=== PATIENT | female | born 1945 | race Caucasian/White ===

== ENCOUNTER → 2017-06-24 | Outpatient (CLI) | payer MEDICARE ==
--- NOTE | 2017-06-24 12:46 | RAD ---
Bilateral lower extremity venous duplex study 06/24/2017 Clinical history: Leg swelling. Varicose veins. Technique: Using a combination of real time ultrasound imaging and color-flow and pulse Doppler imaging techniques along with graded compression and augmentation, duplex evaluation of the deep venous system of the both lower extremities was performed. Multiple images were obtained. Findings: There is no sonographic evidence of deep venous thrombosis involving the visualized deep venous structures of either lower extremity. No superficial thrombophlebitis is seen. There is evidence of venous reflux involving the left common femoral and left greater saphenous vein. Impression: 1. There is no sonographic evidence of deep venous thrombosis involving either lower extremity. 2. Reflux is seen involving the left greater saphenous vein.
--- NOTE | 2017-06-24 15:07 | RAD ---
Bilateral lower extremity arterial duplex study 06/24/2017 Clinical history: Claudication. Technique: Using a combination of real-time ultrasound imaging and color-flow and pulse doppler imaging techniques, duplex evaluation of the major arterial structures of both lower extremities was performed. Multiple images were obtained. Findings: Minimal to mild atheromatous/atherosclerotic plaque formation is seen involving the major arterial structures of both lower extremities. Biphasic/triphasic arterial waveforms are seen throughout. The peak systolic velocities taper normally. No hemodynamically significant stenosis is seen. No arterial flow is seen within the left peroneal artery. This may be occluded. Impression: Minimal to mild atheromatous/atherosclerotic plaque formation is seen involving the major arterial structures of both lower extremities. No definite arterial flow is seen within the left peroneal artery. It may be occluded. No area of stenosis is seen.
== END | disposition home or self-care (01) ==
LOC: US 09:17
PROVIDERS: ATTEND Family Medicine
DX: I70.203 Unspecified atherosclerosis of native arteries of extremities, bilateral legs (principal); I83.93 Asymptomatic varicose veins of bilateral lower extremities; R16.0 Hepatomegaly, not elsewhere classified; Z90.49 Acquired absence of other specified parts of digestive tract
CPT/HCPCS: 93925; 93970

== ENCOUNTER → 2017-08-12 | Outpatient (CLI) | payer MEDICARE ==
--- NOTE | 2017-08-12 11:04 | RAD ---
Indication: Right upper quadrant pain. Cirrhosis. Technique: Ultrasound of the abdomen was performed. No comparison is available. Findings: Visualized pancreas is unremarkable, pancreatic duct within normal limits. Aorta is normal caliber. IVC is patent. Liver is without discrete lesion. It is normal in echogenicity. The biliary system is dilated with the common bile duct 17 mm in diameter. There is a potential stone or polyp within the common bile duct. Gallbladder is absent. Kidneys are without hydronephrosis or mass. Spleen is not enlarged. Impression: 1. Dilated biliary system with common bile duct 17 mm in diameter. Potential small stone or stricture.
== END | disposition home or self-care (01) ==
LOC: US 07:40
PROVIDERS: ATTEND Family Medicine
DX: K74.3 Primary biliary cirrhosis (principal); R74.8 Abnormal levels of other serum enzymes; R10.13 Epigastric pain; Z90.49 Acquired absence of other specified parts of digestive tract
CPT/HCPCS: 76700

== ENCOUNTER → 2017-10-15 | Outpatient (CLI) | payer MEDICARE ==
--- NOTE | 2017-10-15 15:57 | RAD ---
DATE: 10/15/2017 EXAM: MAMMO ANA SCREENING BILATERAL Bilateral digital screening mammography to include digital breast tomosynthesis (3D mammography) HISTORY: Screening study COMPARISON: 10/11/2016 This study was interpreted with the benefit of Computerized Aided Detection (CAD). The breast parenchyma shows scattered fibroglandular densities. Breast parenchyma level B. FINDINGS: Digital MLO and CC mammograms of both breasts were obtained. Additionally digital breast tomosynthesis (3D mammography) images of both breasts in the MLO and CC projections were performed. Comparison study is dated 10/11/2016. The breast parenchyma is composed of scattered fibroglandular densities which can obscure a lesion on mammography (breast density code B). No spiculated mass is seen. No malignant appearing calcification or area of architectural distortion is noted. Digital breast tomosynthesis images demonstrate no spiculated mass or malignant appearing calcification. Since the previous examination there has been no significant interval change. IMPRESSION: BI-RADS category 1, negative. There is no mammographic evidence of malignancy. Routine yearly screening mammography is recommended for follow-up. BI-RADS CATEGORY: 1 NEGATIVE RECOMMENDED FOLLOW-UP: 12M 12 MONTH FOLLOW-UP PQRS compliance statement: Patient information was entered into a reminder system with a target due date 10/15/2018 for the next mammogram. Mammography is a sensitive method for finding small breast cancers, but it does not detect them all and is not a substitute for careful clinical examination. A negative mammogram does not negate a clinically suspicious finding and should not result in delay in biopsying a clinically suspicious abnormality. "Our facility is accredited by the [employer] Mammography [employer]."
== END | disposition home or self-care (01) ==
LOC: MAMMO 12:55
PROVIDERS: ATTEND Family Medicine
DX: Z12.31 Encounter for screening mammogram for malignant neoplasm of breast (principal)
CPT/HCPCS: 77063; G0202; 77067

== ENCOUNTER → 2018-10-16 | Outpatient (CLI) | payer MEDICARE ==
--- NOTE | 2018-10-19 08:41 | RAD ---
DATE: 10/16/2018 12:30 PM EXAM: MAMMO ANA SCREENING BILATERAL HISTORY: routine screening evaluation. COMPARISON: Prior mammographic imaging dating back to 08/01/2009 Bilateral CC and MLO views of the breasts were performed. Bilateral breast tomosynthesis was performed in CC and MLO projections. This study was interpreted with the benefit of Computerized Aided Detection (CAD ). Breast Density: The breast parenchyma is primarily fatty replaced. Breast parenchyma level density A. FINDINGS: Benign calcifications are present. No suspicious masses, microcalcifications or architectural distortion is present to suggest malignancy in either breast. The visualized axillae are unremarkable. IMPRESSION: No mammographic evidence of malignancy. BI-RADS CATEGORY: 2 BENIGN FINDING(S) RECOMMENDED FOLLOW-UP: 12M 12 MONTH FOLLOW-UP Annual screening mammography is recommended, unless clinically indicated sooner based on symptoms or change in physical exam. PQRS compliance statement: Patient information was entered into a reminder system with a target due date 10/16/2019 for the next mammogram. Mammography is a sensitive method for finding small breast cancers, but it does not detect them all and is not a substitute for careful clinical examination. A negative mammogram does not negate a clinically suspicious finding and should not result in delay in biopsying a clinically suspicious abnormality. "Our facility is accredited by the [employer] Mammography [employer]." LIZZIED
== END | disposition home or self-care (01) ==
LOC: MAMMO 10:19
PROVIDERS: ATTEND Family Medicine
DX: Z12.31 Encounter for screening mammogram for malignant neoplasm of breast (principal)
CPT/HCPCS: 77063; 77067

== ENCOUNTER → 2019-06-03 | Outpatient (CLI) | payer MEDICARE ==
--- NOTE | 2019-06-03 17:03 | CARD ---
MR#: [id number] Date of Study: 06/03/2019 Ordering Physician: CABRERA WALSH, Referring Physician: CABRERA WALSH, Tech: Marbella German APPROVED REPORT EXAM: Two-dimensional and M-mode echocardiogram with Doppler and color Doppler. Other Information Quality : Fair INDICATION Dyspnea 2D DIMENSIONS Left Atrium(2D)3.6 (1.6-4.0cm)IVSd1.2 (0.7-1.1cm) Aortic Root(2D)2.9 (2.0-3.7cm)LVDd4.1 (3.9-5.9cm) LVOT Diameter2.1 (1.8-2.4cm)PWd1.1 (0.7-1.1cm) LVDs2.9 (2.5-4.0cm)FS (%) 27.7 % SV39.4 mlLVEF(%)54.2 (>50%) Aortic Valve AoV Peak Pelon.180.6cm/sAoV VTI36.5cm AO Peak GR.13.1mmHgLVOT Peak Pelon.105.5cm/s LVOT VTI 25.15cmAO Mean GR.7mmHg DARRYL (VMAX)2.11do8COF (VTI)2.42cm2 Mitral Valve MV E Hhqicgca09.0cm/sMV DECEL AUCU671xs MV A Dghpeodo570.0cm/sE/A Ratio0.9 Pulmonary Valve PV Peak Jnhbleye85.2cm/sPV Peak Grad.4mmHg Tricuspid Valve TR P. Xudpaqlg876og/sRAP IVHYYDZP8bsFu TR Peak Gr.21biJjERJW29bzWb Pulmonary Vein S1 Hbwmwgqi90.5cm/sD2 Cktugdof03.8cm/s LEFT VENTRICLE The left ventricle is normal size. There is mild concentric left ventricular hypertrophy. The left ve ntricular systolic function is normal. The Ejection Fraction is 55%. There is normal LV segmental wal l motion. Transmitral Doppler flow pattern is Grade I-abnormal relaxation pattern. RIGHT VENTRICLE The right ventricle is normal size. There is normal right ventricular wall thickness. The right ventr icular systolic function is normal. ATRIA The left atrium size is normal. The right atrium size is normal. The interatrial septum is intact wit h no evidence for an atrial septal defect or patent foramen ovale as noted on 2-D or Doppler imaging. AORTIC VALVE The aortic valve is not well visualized. Doppler and Color Flow revealed no significant aortic regurg itation. There is no significant aortic valvular stenosis. MITRAL VALVE The mitral valve is normal in structure and function. There is no evidence of mitral valve prolapse. There is no mitral valve stenosis. Doppler and Color Flow revealed no mitral valve regurgitation note d. TRICUSPID VALVE The tricuspid valve is not well visualized. Doppler and Color Flow revealed trace tricuspid valve reg urgitation noted with an estimated PAP of 23 mmHg. There is no tricuspid valve stenosis. PULMONIC VALVE The pulmonic valve is not well visualized. Doppler and Color Flow revealed no pulmonic valvular regur gitation. GREAT VESSELS The aortic root is normal in size. The IVC is normal in size and collapses >50% with inspiration. PERICARDIAL EFFUSION There is no evidence of significant pericardial effusion. Critical Notification Critical Value: No <Conclusion> The left ventricular systolic function is normal. The Ejection Fraction is 55%. There is normal LV segmental wall motion. Transmitral Doppler flow pattern is Grade I-abnormal relaxation pattern. Trace tricuspid valve regurgitation noted with an estimated PAP of 23 mmHg. There is no evidence of significant pericardial effusion. Signed by : Cabrera Walsh, Electronically Approved : 06/03/2019 17:03:01
--- NOTE | 2019-06-03 17:29 | RAD ---
MR#: [id number] Date of Study: 06/03/2019 Ordering Physician: CABRERA VENEGAS, Referring Physician: CABRERA VENEGAS, Tech: Sisi Coburn RDMS, RVT, RTR APPROVED REPORT Patient Location : OUT-PATIENT Indications Grayscale images of the bilateral saphenofemoral junctions do not reveal any obvious evidence of thro mbus. The right great saphenous vein has a maximum diameter of approximately 6.6 mm with a reflux time of a pproximately 3 seconds. The left greater saphenous vein has a maximum diameter of 5.9 mm with a maximum reflux time of approx imately 4.5 seconds. The bilateral lesser saphenous veins do not show any evidence of reflux. Critical Notification Critical Value: No <Conclusion> 1. Positive for reflux in the bilateral greater saphenous veins. Signed by : Conrado Eid, Electronically Approved : 06/03/2019 17:28:52
== END | disposition home or self-care (01) ==
LOC: US 12:32
PROVIDERS: ATTEND Internal Medicine Cardiovascular Disease
DX: I87.2 Venous insufficiency (chronic) (peripheral) (principal); I51.7 Cardiomegaly
CPT/HCPCS: 93306; 93970

== ENCOUNTER → 2019-07-28 | Outpatient (CLI) | payer MEDICARE ==
--- NOTE | 2019-07-28 17:35 | RAD ---
MR#: [id number] Date of Study: 07/28/2019 Ordering Physician: CABRERA VENEGAS, Referring Physician: CABRERA VENEGAS, Tech: Marbella Fernandez, PATTY, RVT, RTR APPROVED REPORT Bilateral Lower Extremity Venous Study for DVT Patient Location: OUT-PATIENT Indications Post Op Bilateral GSV Vena Seal ablation. Check for DVT Risk Factors Grayscale images the bilateral saphenofemoral junctions are grossly unremarkable. The bilateral great er saphenous veins are occluded consistent with recent history of ablation. No DVTs noted. Spectral w aveforms and color Doppler are within normal limits and the deep venous system. Critical Notification Critical Value: No <Conclusion> 1. Negative for DVT. Signed by : Conrado Eid, Electronically Approved : 07/28/2019 17:35:11
== END | disposition home or self-care (01) ==
LOC: US 11:07
PROVIDERS: ATTEND Internal Medicine Cardiovascular Disease
DX: I82.813 Embolism and thrombosis of superficial veins of lower extremities, bilateral (principal); I87.2 Venous insufficiency (chronic) (peripheral)
CPT/HCPCS: 93970

== ENCOUNTER → 2020-03-31 | Outpatient (CLI) | payer MEDICARE ==
--- NOTE | 2020-03-31 12:35 | RAD ---
MR#: [id number] Date of Study: 03/31/2020 Ordering Physician: CABRERA VENEGAS, Referring Physician: CABRERA VENEGAS, Tech: Veronica Morse RVT,PATTY APPROVED REPORT Right Lower Extremity Venous Study for DVT Patient Location: OUT-PATIENT Indications Lower Extremity Edema: On the right the grayscale images of the common femoral, superficial femoral and popliteal veins do n ot demonstrate any evidence of thrombus and these veins appear to be compressible. The below-knee vei ns were not well visualized but grossly appear to be compressible. Spectral imaging and color Doppler do not reveal any evidence of obstruction to flow with normal respirophasic variation above the knee . Below the knee there is spontaneous flow noted. Medications Aspirin Vein Imaging (Right) CFV (R): Compressible SFJ (R): Compressible FEM (R): Compressible POP (R): Compressible DFV (R): Compressible PTV (R): Compressible GSV (R): Compressible Peroneals (R): Compressible Critical Notification Critical Value: No <Conclusion> Negative for DVT in the RLE s/p venaseal ablation therapy of the GSV Signed by : Conrado Eid, Electronically Approved : 03/31/2020 12:34:54
== END | disposition home or self-care (01) ==
LOC: US 09:18
PROVIDERS: ATTEND Internal Medicine Cardiovascular Disease
DX: I87.2 Venous insufficiency (chronic) (peripheral) (principal)
CPT/HCPCS: 93971

== ENCOUNTER → 2020-04-19 | Outpatient (CLI) | payer MEDICARE ==
--- NOTE | 2020-04-19 12:08 | RAD ---
DATE: 04/19/2020 9:20 AM EXAM: MAMMO ANA SCREENING BILATERAL HISTORY: Screening COMPARISON: 10/16/2018 Bilateral CC and MLO views of the breasts were performed. Bilateral breast tomosynthesis was performed in CC and MLO projections. This study was interpreted with the benefit of Computerized Aided Detection (CAD). FINDINGS: Breast Density: FATTY The Breast Parenchyma is primarily fatty replaced. Breast parenchyma level density A. No suspicious masses, microcalcifications or architectural distortion is present to suggest malignancy in either breast. The visualized axillae are unremarkable. IMPRESSION: No mammographic evidence of malignancy. BI-RADS CATEGORY: 1 NEGATIVE RECOMMENDED FOLLOW-UP: 12M 12 MONTH FOLLOW-UP Annual screening mammography is recommended, unless clinically indicated sooner based on symptoms or change in physical exam. PQRS compliance statement: Patient information was entered into a reminder system with a target due date 04/20/2021 for the next mammogram. Mammography is a sensitive method for finding small breast cancers, but it does not detect them all and is not a substitute for careful clinical examination. A negative mammogram does not negate a clinically suspicious finding and should not result in delay in biopsying a clinically suspicious abnormality. "Our facility is accredited by the [employer] Mammography Program."
== END | disposition home or self-care (01) ==
LOC: MAMMO 09:11
PROVIDERS: ATTEND Family Medicine
DX: Z12.31 Encounter for screening mammogram for malignant neoplasm of breast (principal)
CPT/HCPCS: 77063; 77067

== ENCOUNTER → 2021-04-25 | Outpatient (CLI) | payer MEDICARE ==
--- NOTE | 2021-04-25 16:33 | RAD ---
EXAM: Bilateral screening mammogram. HISTORY: 75-year-old female presents for screening mammography. TECHNIQUE: Full-field digital craniocaudal and mediolateral oblique views of both breasts are obtaine d for evaluation. Computer aided detection was applied. COMPARISON: 04/19/2020 BREAST PARENCHYMAL DENSITY: Level A - Mostly fat. FINDINGS: There is no new suspicious mass, microcalcification or region of architectural distortion. IMPRESSION: BI-RADS Category 2: Benign finding(s). RECOMMENDATION: Annual mammography is recommended. If your mammogram demonstrates that you have dense breast tissue, which could hide abnormalities, and if you have other risk factors for breast cancer that have been identified, you might benefit from s upplemental screening tests that may be suggested by your ordering physician. Dense breast tissue, i n and of itself, is a relatively common condition. This information is not provided to cause undue c oncern, but rather to raise your awareness and to promote discussion with your physician regarding th e presence of other risk factors, in addition to dense breast tissue. A report of your mammography re sults will be sent to you and your physician. You should contact your physician if you have any ques tions or concerns regarding this report. Mammography is a sensitive method for finding small breast cancers, but it does not detect them all a nd is not a substitute for careful clinical examination. A negative mammogram does not negate a clin ically suspicious finding and should not result in delay in biopsying a clinically suspicious abnorma lity. PQRS compliance statement - Patient information was entered into a reminder system with a target due date for the next mammogram. "Our facility is accredited by the [employer] Mammography Program." Electronically signed by: Hillary Marcus MD (04/25/2021 4:30 PM) [id number]
== END ==
LOC: MAMMO 15:11
PROVIDERS: ATTEND Family Medicine
DX: Z12.31 Encounter for screening mammogram for malignant neoplasm of breast (principal)
CPT/HCPCS: 77067

== ENCOUNTER → 2021-05-08 | Outpatient (CLI) | payer MEDICARE ==
--- NOTE | 2021-05-08 17:08 | CARD ---
MR#: [id number] Date of Study: 05/08/2021 Ordering Physician: CABRERA WALSH, Referring Physician: Brianna WORLEY: Sarath Tomas [facility] APPROVED REPORT EXAM: Two-dimensional and M-mode echocardiogram with Doppler and color Doppler. Other Information Quality : Fair Rhythm : NSR INDICATION Hypertension/HCVD RISK FACTORS Hypertension Smoking 2D DIMENSIONS Left Atrium(2D)4.0 (1.6-4.0cm)IVSd0.9 (0.7-1.1cm) Aortic Root(2D)3.2 (2.0-3.7cm)LVDd4.0 (3.9-5.9cm) LVOT Diameter1.8 (1.8-2.4cm)PWd0.9 (0.7-1.1cm) LVDs2.5 (2.5-4.0cm)FS (%) 38.4 % SV48.1 mlLVEF(%)69.3 (>50%) Aortic Valve AoV Peak Pelon.152.2cm/sAoV VTI27.3cm AO Peak GR.9.3mmHgLVOT Peak Pelon.127.7cm/s LVOT VTI 21.42cmAO Mean GR.5mmHg DARRYL (VMAX)2.51cm2VKP (VTI)2.03cm2 Mitral Valve MV E Tiwzsjob14.6cm/sMV E Peak Gr.7mmHg MV DECEL [id number] A Zznyfihy923.8cm/s MV E Mean Gr.3mmHgE/A Ratio0.6 Pulmonary Valve PV Peak Jabkdbhu272.1cm/sPV Peak Grad.5mmHg Tricuspid Valve TR P. Kujelwmb697gt/sTR Peak Gr.31mmHg Pulmonary Vein S1 Ttinxlis88.1cm/sD2 Myuqpjkq97.4cm/s LEFT VENTRICLE The left ventricle is normal size. There is normal left ventricular wall thickness. The left ventricu lar systolic function is normal. The ejection fraction is 60-65%. There is normal LV segmental wall m otion. Transmitral Doppler flow pattern is Grade I-abnormal relaxation pattern. No left ventricle thr ombus noted on this study. There is no ventricular septal defect visualized. There is no left ventric ular aneurysm. There is no mass noted in the left ventricle. RIGHT VENTRICLE The right ventricle is normal size. There is normal right ventricular wall thickness. The right ventr icular systolic function is normal. ATRIA The left atrium is mildly dilated. The right atrium size is normal. The interatrial septum is intact with no evidence for an atrial septal defect or patent foramen ovale as noted on 2-D or Doppler imagi ng. AORTIC VALVE The aortic valve is calcified but opens well. Not well visualized. Doppler and Color Flow revealed no significant aortic regurgitation. There is no significant aortic valvular stenosis. There is no aort ic valvular vegetation. MITRAL VALVE The mitral valve is normal in structure and function. There is no evidence of mitral valve prolapse. There is no mitral valve stenosis. Doppler and Color Flow revealed no mitral valve regurgitation note d. TRICUSPID VALVE The tricuspid valve is normal in structure and function. Doppler and Color Flow revealed trace tricus pid regurgitation. The pulmonary artery systolic pressure is estimated at 30-40 mmHg. There is no tri cuspid valve prolapse or vegetation. There is no tricuspid valve stenosis. PULMONIC VALVE Not well seen. Doppler and Color Flow revealed no pulmonic valvular regurgitation. There is no pulmon ic valvular stenosis. GREAT VESSELS The aortic root is normal in size. The ascending aorta is normal in size. The pulmonary artery is nor mal. The IVC is normal in size and collapses >50% with inspiration. PERICARDIAL EFFUSION There is no pleural effusion. There is no evidence of significant pericardial effusion. Critical Notification Critical Value: No <Conclusion> The left ventricular systolic function is normal. The ejection fraction is 60-65%. There is normal LV segmental wall motion. Transmitral Doppler flow pattern is Grade I-abnormal relaxation pattern. Trace tricuspid regurgitation. PAP estimated at 30-40 mmHg. There is no evidence of significant pericardial effusion. Signed by : Cabrera Walsh, Electronically Approved : 05/08/2021 17:07:38
== END ==
LOC: ECHO 12:15
PROVIDERS: ATTEND Internal Medicine Cardiovascular Disease
DX: I35.8 Other nonrheumatic aortic valve disorders (principal); I10 Essential (primary) hypertension
CPT/HCPCS: 93306